=== PATIENT | female | born 1980 | race Caucasian/White ===

== ENCOUNTER 2021-01-10 08:13 | Inpatient (IN) | payer OTHER, SELFPAY ==
[~2021-01-10] VITALS: Ht 167.6 cm; Wt 88.0 kg
[2021-01-10] MEDS ORDERED: PRETAB PO (08:41)
[2021-01-10] MEDS ORDERED: CITRIC ACID/SODIUM CITRATE 30 ML UDC PO ONE (08:50)
--- NOTE | 2021-01-10 08:53 | NUR ---
PATIENT HAS BEEN SCREENED AND CATEGORIZED LOW NUTRITION RISK. PATIENT WILL BE SEEN WITHIN 7 DAYS OF ADMISSION. 01/16/[address]
[2021-01-10] MEDS: LACTATED RINGERS 1,000 ML IV SCH ×2 (10:06→10:25)
[2021-01-10 10:22] VITALS: BP 128/74
[2021-01-10 10:30] LABS: APPEARANCE,URINE CLEAR (CLEAR); BILIRUBIN,URINE NEGATIVE (NEGATIVE); BLOOD, URINE NEGATIVE (NEGATIVE); COLOR,URINE YELLOW (YELLOW); LEUKOCYTE ESTERASE ,URINE TRACE (NEGATIVE); NITRITE, URINE NEGATIVE (NEGATIVE); PH,URINE 6.5 (5.0-9.0); UGLUCOSE NEGATIVE (NEGATIVE)
[2021-01-10 10:35] LABS: RBC,URINE 0-5 /HPF (0-5); WBC,URINE 0-5 /HPF (0-5)
[2021-01-10 10:36] LABS: HEMOGLOBIN 11.5 g/dL (12.0-16.0); WHITE BLOOD COUNT (AUTO) 10.3 K/uL (4.8-10.8)
[2021-01-10] MEDS ORDERED: METHYLERGONOVINE 0.2 MG/ML AMP IM PRN (10:40)
[2021-01-10] MEDS ORDERED: KETOROLAC 30 MG/ML VIAL IVP PRN (10:40)
[2021-01-10] MEDS ORDERED: oxyCODONE/APAP 5/325 MG 1 TAB TAB PO PRN ×2 (10:40)
[2021-01-10] MEDS ORDERED: TEMAZEPAM 15 MG CAP PO PRN (10:40)
[2021-01-10 10:46] LABS: BASOPHILS % (AUTO) 0.3 % (0.0-2.0); EOSINOPHILS # (AUTO) 0.1 K/uL (0-0.4); EOSINOPHILS % (AUTO) 0.6 % (0.0-4.0); HEMATOCRIT 33.9 % (36-48); LYMPHOCYTES # (AUTO) 1.9 K/uL (2.5-16.5); MEAN CORPUSCULAR HEMOGLOBIN 30 pg (27-31); MEAN CORPUSCULAR HGB CONC 34 g/dL (33-37); MEAN CORPUSCULAR VOLUME 88.1 fL (80-94); MONOCYTES # (AUTO) 0.8 K/uL (0.8-1.0); MONOCYTES % (AUTO) 7.4 % (1.7-9.3); NEUTROPHILS # (AUTO) 7.6 K/uL (1.8-7.7); NEUTROPHILS % (AUTO) 73.7 % (42.2-75.2); PLATELET COUNT (AUTO) 111 K/uL (140-450); RED BLOOD CELL COUNT(AUTO) 3.85 MIL/uL (4.20-5.40); RED CELL DISTRIBUTION WIDTH 13.4 % (11.6-13.7)
[2021-01-10 10:50] LABS: ALBUMIN 2.7 g/dL (3.4-5.0); ANION GAP 14.7 (8-16); CARBON DIOXIDE 24.1 mmol/L (21-32); CREATININE 0.6 mg/dL (0.6-1.3); POTASSIUM 3.8 mmol/L (3.5-5.1); TOTAL BILIRUBIN 0.3 mg/dL (0.0-1.0)
[2021-01-10] MEDS ORDERED: CITRIC ACID/SODIUM CITRATE 30 ML UDC ONE (11:28)
[2021-01-10] MEDS ORDERED: DEXTROSE 50% 50 ML SYR IVP SCH (12:00)
[2021-01-10] MEDS ORDERED: MIDAZOLAM 2 MG/2 ML VIAL ONE (12:07)
[2021-01-10] MEDS ORDERED: fentaNYL citrate 0.05 MG/ML VIAL ONE (12:07)
[2021-01-10] MEDS ORDERED: MORPHINE PRES FREE 10 MG/10 ML AMP IV ONE (12:08)
[2021-01-10] MEDS ORDERED: ONDANSETRON 4 MG/2 ML VIAL IVP PRN ×2 (13:10)
[2021-01-10] MEDS ORDERED: NALOXONE 0.4 MG/ML VIAL IVP PRN ×2 (13:10)
[2021-01-10] MEDS ORDERED: BLOOD GLUCOSE MONITORING 1 DEV DEV FS ONE (13:10)
[2021-01-10] MEDS ORDERED: MEPERIDINE 25 MG/ML SYR IVP PRN (13:10)
[2021-01-10] MEDS ORDERED: OXYTOCIN 20 UNITS in LACTATED RINGERS 1,000 ML IV SCH (13:10)
[2021-01-10] MEDS ORDERED: diphenhydrAMINE 50 MG/ML VIAL IVP PRN (13:10)
[2021-01-10] MEDS ORDERED: fentaNYL citrate 0.05 MG/ML VIAL IVP PRN (13:10)
[2021-01-10] MEDS ORDERED: OXYTOCIN 20 UNITS/LR PREMIX 1,000 ML IV ONE ×2 (13:19→21:11)
[2021-01-10] MEDS: KETOROLAC 30 MG/ML VIAL IM/IVP SCH (17:49)
[2021-01-10] MEDS: DOCUSATE SOD/SENNA 50/8.6 MG 1 TAB PO SCH (21:00)
[2021-01-10] MEDS: OXYTOCIN 20 UNITS in LACTATED RINGERS 1,000 ML IV SCH (21:17)
[2021-01-11] MEDS: KETOROLAC 30 MG/ML VIAL IM/IVP SCH ×2 (00:02→06:01)
[2021-01-11] MEDS ORDERED: OXYTOCIN 20 UNITS/LR PREMIX 1,000 ML IV ONE (05:20)
[2021-01-11] MEDS: OXYTOCIN 20 UNITS in LACTATED RINGERS 1,000 ML IV SCH (05:26)
[2021-01-11 06:13] LABS: BASOPHILS % (AUTO) 0.1 % (0.0-2.0); EOSINOPHILS # (AUTO) 0.1 K/uL (0-0.4); EOSINOPHILS % (AUTO) 0.4 % (0.0-4.0); HEMOGLOBIN 9.7 g/dL (12.0-16.0); LYMPHOCYTES # (AUTO) 1.8 K/uL (2.5-16.5); LYMPHOCYTES % (AUTO) 12.4 % (20.5-51.1); MEAN CORPUSCULAR HEMOGLOBIN 30 pg (27-31); MEAN CORPUSCULAR HGB CONC 34 g/dL (33-37); MEAN CORPUSCULAR VOLUME 88.9 fL (80-94); MONOCYTES % (AUTO) 7.3 % (1.7-9.3); NEUTROPHILS # (AUTO) 11.4 K/uL (1.8-7.7); NEUTROPHILS % (AUTO) 79.8 % (42.2-75.2); PLATELET COUNT (AUTO) 101 K/uL (140-450); RED BLOOD CELL COUNT(AUTO) 3.26 MIL/uL (4.20-5.40); RED CELL DISTRIBUTION WIDTH 13.2 % (11.6-13.7); WHITE BLOOD COUNT (AUTO) 14.3 K/uL (4.8-10.8)
[2021-01-11] MEDS: IBUPROFEN 800 MG TAB PO PRN (18:09)
[2021-01-11] MEDS: SIMETHICONE 80 MG TAB.CHEW PO PRN (18:10)
[2021-01-11] MEDS: DOCUSATE SOD/SENNA 50/8.6 MG 1 TAB PO SCH (21:01)
[2021-01-12] MEDS: SIMETHICONE 80 MG TAB.CHEW PO PRN ×2 (00:18→06:24)
[2021-01-12] MEDS ORDERED: CAMERA MC ONE (01:56)
[2021-01-12] MEDS: IBUPROFEN 800 MG TAB PO PRN (02:10)
[2021-01-12] MEDS ORDERED: IBUP-2213 PO (11:06)
[2021-01-12] MEDS ORDERED: FERR75LI22 PO (11:08)
[2021-01-12] MEDS ORDERED: FERR325E14 PO (11:09)
== END 2021-01-12 12:10 | disposition home or self-care (01) | DRG 540 ==
LOC: MLD 08:13 → MFCC 13:14
PROVIDERS: ADMIT Obstetrics & Gynecology; ATTEND Obstetrics & Gynecology
PROC: 10D00Z1 Extraction of Products of Conception, Low, Open Approach (ICD-10-PCS; principal; 2021-01-10 11:00)
DX: O34.211 Maternal care for low transverse scar from previous cesarean delivery (principal); D69.6 Thrombocytopenia, unspecified; O99.12 Other diseases of the blood and blood-forming organs and certain disorders involving the immune mechanism complicating childbirth; Z20.822 Contact with and (suspected) exposure to COVID-19; Z3A.38 38 weeks gestation of pregnancy; Z37.0 Single live birth
CPT/HCPCS: 36415; 80053; 81001; 82948; 85025; 86592; 86886; 86900; 86901; J0690; J1885; J2250; J2270; J2590; J3010; J7060; J7120